=== PATIENT | female | born 1980 | race Two or more races ===

== ENCOUNTER 2023-07-12 05:45 | Day surgery (SDC) | payer OTHER ==
[2023-07-12] MEDS ORDERED: PROTONIX20 MG PO (09:11)
== END 2023-07-12 10:40 | disposition home or self-care (01) ==
LOC: AMB-ENDOS 05:45
PROVIDERS: ATTEND Surgery
DX: K31.7 Polyp of stomach and duodenum (principal); K29.00 Acute gastritis without bleeding; K29.80 Duodenitis without bleeding; K44.9 Diaphragmatic hernia without obstruction or gangrene; R10.13 Epigastric pain; E66.09 Other obesity due to excess calories